=== PATIENT | female | born 1950 | race Caucasian/White ===

== ENCOUNTER 2016-07-07 22:20 | Emergency (ER) | payer MEDICARE, OTHER ==
[~2016-07-07 22:20] MED LIST: ABILIFY30 MG PO; ACCUNE1 INH; ACET500CAP PO; ADVAIR115P INH; ADVAIR250 INH; ADVIL PO; ARICEPT5 PO; CEFT5 PO; CONCERTA36 PO; DIOVAN320 MG PO; FOLIC PO; GEODON80 PO; HYDROCHLOROT12.5 MG PO; KLONO5 PO; KLOR-CON 1010 MEQ PO; L20 PO; LAMICTAL XR100 MG PO; LAMICTAL10 PO; LAMICTAL150 MG PO; LAMICTAL200 MG PO; LEVOTHYROXIN112 MCG PO; LEVOTHYROXIN200 MCG PO; LORTAB10 PO; MEDROL8 MG PO; MOBIC7.5 PO; NORCO1 TA1 PO; NORCO1 TA2 PO; OMNICEF300 PO; P10 PO; PRILOSEC40 MG PO; PROVHFA INH; PROZAC40 MG PO; RESTORIL30 MG PO; RISPERDAL PO; RITALIN20 PO; SINGULAIR1 PO; SPIRIVA RESPIMAT INH; SYMBICORT 160/41 INH INH; SYN.15 PO; SYN112 PO; SYNTHROID175 MCG PO; TOPAMAX100 PO; TOPXL25 PO; VASOTEC20 MG PO; VENTOLIN HFA INH; VITAMIN D31000 UNIT PO; ZITHROMAX500 MG PO; ZOL100 PO; ZYPREXA ZYDI15 MG PO; ZYPREXA15 MG PO; effexor
[2016-07-07 23:11] LABS: BASOPHILS 0.8 %; BASOPHILS ABSOLUTE 0.05 10/3/uL (0.0-0.16); EOSINOPHILS 1.4 %; EOSINOPHILS ABSOLUTE 0.09 10/3/uL (0.0-0.53); ER CBC TAT 0 Hrs 03 Mins; HEMOGLOBIN 12.3 g/dL (12.0-16.0); IMMATURE GRANULOCYTES 0.2 %; IMMATURE GRANULOCYTES ABSOLUTE 0.01 10/3/uL (0.0-0.11); LYMPHOCYTES 18.3 %; MEAN CORPUS HGB CONC 35.5 g/dL (32.0-36.0); MEAN CORPUSCULAR HEMOGLOB 31.6 pg (26.0-34.0); MEAN CORPUSCULAR VOLUME 88.9 fL (80-100); MEAN PLATELET VOLUME 9.5 fL (9.2-13.0); MONOCYTES 19.9 %; NEUTROPHILS 59.4 %; NEUTROPHILS ABSOLUTE 3.89 10/3/uL (2.02-8.40); PLATELET COUNT 270 10/3/uL (150-400); RBC DISTRIBUTION WIDTH 14.2 % (12.0-16.0); RED CELL COUNT 3.89 10/6/uL (4.0-5.6); WHITE BLOOD CELLS 6.5 10/3/uL (4.5-10.5)
[2016-07-07 23:15] LABS: HEMATOCRIT 34.6 % (36.0-48.0); MANUAL DIFF NO %
[2016-07-07 23:24] LABS: INTERNATIONAL NORMAL RATI 1.2 UNITS (-); PARTIAL THROMBO TIME 28.4 SEC (22.5-37.2)
[2016-07-07 23:25] LABS: PROTIME (NOT ORD) 14.7 SEC (12.0-14.5)
[2016-07-07 23:29] LABS: CALCIUM, SERUM 8.8 MG/DL (8.5-10.4); CHEST PAIN PROFILE TAT 0 Hrs 21 Mins; CHLORIDE, SERUM 101 MMOL/L (96-112); CO2 (CARBON DIOXIDE) 25 MMOL/L (24-34); CREATININE 0.79 MG/DL (0.55-1.02); GFR AFRICAN AMERICAN 89 ML/MIN (>=60); GFR NON AFRICAN AMERICAN 77 ML/MIN (>=60); GLUCOSE, SERUM 104 MG/DL (60-99); POTASSIUM, SERUM 3.8 MMOL/L (3.5-5.3); SALICYLATE 2.1 MG/DL (-); SODIUM, SERUM 138 MMOL/L (135-148); TROPONIN I <0.02 NG/ML (<0.05)
[2016-07-07 23:30] LABS: ACETAMINOPHEN LEVEL (TYLENOL) < 2.0 MCG/ML (10.0-20.0); ALCOHOL < 10 MG/DL (0); BUN (BLOOD UREA NITROGEN) 17 MG/DL (6-23)
[2016-07-08 00:42] LABS: ULTRASENSITIVE TSH 0.017 MCIU/ML (0.358-3.740)
[2016-07-08 00:49] LABS: ASCORBIC ACID (UR NOT ORDER) NEG (NEG); BILIRUBIN, URINE NEGATIVE (NEG); ER URINALYSIS TAT 0 Hrs 00 Mins; KETONE, URINE TRACE MG/DL (NEG); LEUKOCYTE ESTERASE(NOT OR NEG (NEG); NITRITE (URINE) NEG (NEG); WBC (NOT ORDERED) (RFLEX) < 1 (0-5)
[2016-07-08 01:02] LABS: AMPHETAMINES (NOT ORD) NEG (NEG); BARBITURATES (NOT ORDERED NEG (NEG); BENZODIAZEPINES (NOT ORD) NEG (NEG); CANNABINOIDS (THC) NEG (NEG); COCAINE (NOT ORDERED) NEG (NEG); OPIATES NEG (NEG); PHENCYCLIDINE(PCP) NEG (NEG); TRICYCLICS POS (NEG)
== END 2016-07-08 04:30 | disposition home or self-care (01) ==
LOC: ER 22:20
PROVIDERS: Nurse Practitioner
DX: R31.9 Hematuria, unspecified (principal); E07.9 Disorder of thyroid, unspecified; Z91.14 Patient's other noncompliance with medication regimen; J44.9 Chronic obstructive pulmonary disease, unspecified; I10 Essential (primary) hypertension; F31.9 Bipolar disorder, unspecified; F41.9 Anxiety disorder, unspecified; F17.200 Nicotine dependence, unspecified, uncomplicated; Z88.8 Allergy status to other drugs, medicaments and biological substances; Z79.899 Other long term (current) drug therapy
CPT/HCPCS: 71010; 80048; 80305; 80307; 81001; 83735; 84443; 84484; 85025; 85610; 85730; 93005; 96374; 99285; J1200